=== PATIENT | female | born 1995 | race Two or more races ===

== ENCOUNTER 2016-12-24 22:17 | Emergency (ER) | payer MEDICAID ==
[~2016-12-24] VITALS: Ht 157.5 cm; Wt 45.6 kg
[2016-12-24 22:43] VITALS: BP 102/70
[2016-12-24 23:08] LABS: Basophils # (auto) 0.1 uL; Basophils % (auto) 0.9 % (0.0-2.0); Eosinophils # (auto) 0 uL; Eosinophils % (auto) 0.4 % (0.0-7.0); Hemoglobin 12.9 g/dL (12.2-16.2); Lymphocytes # (auto) 1.8 uL; Lymphocytes % (auto) 15.8 % (10.0-50.0); Mean Corpuscular Hgb Conc. 32.1 g/dL (32.0-36.0); Mean Corpuscular Volume 96.3 fL (80.0-100.0); Mean Platelet Volume 7.7 fL (7.4-10.4); Monocytes # (auto) 0.6 uL; Monocytes % (auto) 5.5 % (0.0-12.0); Neutrophils # (auto) 8.6 uL; Neutrophils % (auto) 77.4 % (37.0-80.0); Platelet Count (auto) 324 10^3/uL (140-450); White Blood Cell 11.1 10^3/uL (4.4-10.8)
[2016-12-24 23:25] LABS: Albumin 3.6 g/dL (3.4-5.0); BUN/Creatinine Ratio 15.4; Calcium 8.5 mg/dL (8.5-10.1); Potassium 3.2 mmol/L (3.5-5.1)
[2016-12-24 23:27] LABS: Bilirubin, Total 0.8 mg/dL (0.2-1.0); Total Protein 7.3 g/dL (6.4-8.2)
[2016-12-24 23:34] LABS: Urine Bilirubin Negative (Negative); Urine Blood Negative /uL (Negative); Urine Color Yellow (Yellow); Urine Glucose Normal (Normal); Urine Ketone TRACE (Negative); Urine Mucus FEW (None Seen); Urine Nitrite Negative (Negative); Urine RBC 1 /hpf (0 - 4); Urine Squamous Epithelial Cell FEW /hpf (<5); Urine Urobilinogen Normal (Negative); Urine pH 6.5 (5.0-8.0)
== END 2016-12-25 04:18 | disposition left against medical advice (07) ==
LOC: ER 22:21
DX: R10.9 Unspecified abdominal pain (principal); M54.9 Dorsalgia, unspecified; Z53.21 Procedure and treatment not carried out due to patient leaving prior to being seen by health care provider
CPT/HCPCS: 36415; 80053; 81001; 84702; 85025

== ENCOUNTER 2021-02-23 19:34 | Emergency (ER) | payer MEDICAID ==
[~2021-02-23] VITALS: Ht 157.5 cm; Wt 44.0 kg
[2021-02-23 20:10] LABS: Basophils # (auto) 0.1 10 ^3/uL (0-0.2); Basophils % (auto) 0.8 % (0.0-2.0); Eosinophils # (auto) 0 10 ^3/uL (0-0.8); Eosinophils % (auto) 0.2 % (0.0-7.0); Hematocrit 42.2 % (36.0-46.0); Hemoglobin 14.7 g/dL (12.2-16.2); Lymphocytes # (auto) 1.8 10 ^3/uL (0.4-5.4); Lymphocytes % (auto) 20.1 % (10.0-50.0); Mean Corpuscular Hemoglobin 32.8 pg (28.0-32.0); Mean Corpuscular Hgb Conc. 34.8 g/dL (32.0-36.0); Mean Corpuscular Volume 94.2 fL (80.0-100.0); Monocytes # (auto) 0.7 10 ^3/uL (0-1.3); Monocytes % (auto) 7.7 % (0.0-12.0); Neutrophils # (auto) 6.4 10 ^3/uL (1.6-8.6); Neutrophils % (auto) 71.2 % (37.0-80.0); Nucleated Red Blood Cells % 0.1 %; Platelet Count (auto) 316 10^3/uL (140-450); Red Blood Cells 4.48 10^6/uL (4.0-5.20); Red Cell Distribution Width 12.4 % (11.8-14.3)
[2021-02-23 20:23] LABS: Urine Bacteria FEW /hpf (None Seen); Urine Blood 2+ /uL (Negative); Urine Hyaline Cast FEW /lpf (0 - 2); Urine Mucus FEW (None Seen); Urine Specific Gravity 1.013 (1.001-1.035); Urine WBC 516 /hpf (0 - 5); Urine WBC Clumps PRESENT /hpf (None Seen)
[2021-02-23 20:30] LABS: Albumin 4.2 g/dL (3.4-5.0); Calcium 9.7 mg/dL (8.5-10.1); Potassium 4.1 mmol/L (3.5-5.1)
[2021-02-23 20:35] LABS: BUN/Creatinine Ratio 9.9; Bilirubin, Total 1.4 mg/dL (0.2-1.0); Total Protein 8.5 g/dL (6.4-8.2)
[2021-02-23] MEDS ORDERED: KETOROLAC TROMETH 60MG/2ML VIAL IM ONE (22:00)
[2021-02-23] MEDS ORDERED: cefTRIAXone SOD 1,000 MG VL IM ONE (22:00)
[2021-02-23 22:05] VITALS: BP 92/62
[2021-02-23] MEDS ORDERED: LIDOCAINE 1% HCL (LOCAL ANESTH.) INJ 20ML MDV ONE (22:15)
[2021-02-23] MEDS ORDERED: LIDOCAINE 1% HCL (LOCAL ANESTH.) INJ 20ML MDV IJ ONE (22:45)
== END 2021-02-23 21:58 | disposition home or self-care (01) ==
LOC: ER 19:34
DX: N39.0 Urinary tract infection, site not specified (principal); J45.909 Unspecified asthma, uncomplicated
CPT/HCPCS: 36415; 74176; 80053; 81001; 82150; 83690; 84702; 85025; 87086; 96372; 99284; J0696; J1885; J2001; 87088; 87186; J7042

== ENCOUNTER 2024-08-25 03:38 | Emergency (ER) | payer MEDICAID ==
[~2024-08-25] VITALS: Ht 157.5 cm; Wt 49.6 kg
[2024-08-25 03:57] VITALS: BP 112/60; PULSE 100; RESP 20; TEMP 99.8; O2SAT 98
[2024-08-25] MEDS ORDERED: IBUP-1456 PO (05:10)
[2024-08-25] MEDS ORDERED: OSEL75CA5 PO (05:10)
[2024-08-25] MEDS: IBUPROFEN 800 MG TAB PO ONE (05:15)
[2024-08-25] MEDS ORDERED: NITR-87 PO (22:38)
[2024-08-25] MEDS ORDERED: ZOFR4T PO (22:38)
[2024-08-25] MEDS ORDERED: IBUP-1455 PO (22:38)
== END 2024-08-25 05:47 | disposition home or self-care (01) ==
LOC: ER 03:38
DX: J11.1 Influenza due to unidentified influenza virus with other respiratory manifestations (principal); J45.909 Unspecified asthma, uncomplicated; F15.90 Other stimulant use, unspecified, uncomplicated

== ENCOUNTER 2024-08-25 18:12 | Emergency (ER) | payer MEDICAID ==
[~2024-08-25] VITALS: Ht 157.5 cm; Wt 79.9 kg
[~2024-08-25 18:12] MED LIST: IBUP-1456 PO; OSEL75CA5 PO
[2024-08-25 20:28] VITALS: BP 107/59; PULSE 111; RESP 16; O2SAT 98
[2024-08-25] MEDS: ONDANSETRON HCL 4 MG/2 ML VIAL IM ONE (20:51)
[2024-08-25] MEDS: ACETAMINOPHEN 500 MG TAB PO ONE (20:54)
[2024-08-25 21:26] LABS: COVID19 ANTIGEN SOFIA FIA NEGATIVE (NEGATIVE); Rapid Influenza A Negative (Negative); Rapid Influenza B Negative (Negative)
[2024-08-25 21:29] LABS: Urine Bacteria FEW /hpf (None Seen); Urine Blood 1+ /uL (Negative); Urine Clarity Turbid (Clear); Urine Color Yellow (Yellow); Urine Mucus FEW (None Seen); Urine Protein, UAD 1+ (Negative); Urine Specific Gravity 1.021 (1.001-1.035); Urine Urobilinogen 6 mg/dL (Negative); Urine WBC 11 /hpf (0 - 5)
[2024-08-25 21:30] VITALS: TEMP 98.9
[2024-08-25] MEDS ORDERED: IBUP-1455 PO (22:38)
[2024-08-25] MEDS ORDERED: ZOFR4T PO (22:38)
[2024-08-25] MEDS ORDERED: NITR-87 PO (22:38)
[2024-08-26] MEDS: PENICILLIN G BENZ 1,200,000 UNITS/2 ML SYRG IM ONE (00:02)
[2024-08-26] MEDS: NITROFURANTOIN 100 mg CAP PO ONE (00:12)
== END 2024-08-26 00:13 | disposition home or self-care (01) ==
LOC: ER 18:12
DX: J02.0 Streptococcal pharyngitis (principal); N39.0 Urinary tract infection, site not specified; J45.909 Unspecified asthma, uncomplicated; F15.90 Other stimulant use, unspecified, uncomplicated; Z79.1 Long term (current) use of non-steroidal anti-inflammatories (NSAID); Z79.899 Other long term (current) drug therapy; Z20.822 Contact with and (suspected) exposure to COVID-19
CPT/HCPCS: 36415; 81001; 87426; 87804; 96372; 99284; J0561; J2405

== ENCOUNTER 2025-07-03 20:40 | Emergency (ER) | payer MEDICAID ==
[~2025-07-03] VITALS: Ht 157.5 cm; Wt 47.6 kg
[~2025-07-03 20:40] MED LIST changes: +IBUP-1455 PO; +NITR-87 PO; +ZOFR4T PO
[2025-07-03] MEDS: ONDANSETRON ODT 4 MG TAB PO ONE (21:44)
[2025-07-03 22:32] LABS: Urine Protein, UAD 1+ (Negative); Urine WBC Clumps PRESENT /hpf (None Seen)
[2025-07-03] MEDS: ACETAMINOPHEN 325 MG TAB PO ONE (22:35)
[2025-07-03] MEDS ORDERED: ZOFR4T PO (22:36)
[2025-07-03] MEDS ORDERED: ACET500T58 PO (22:36)
[2025-07-03] MEDS ORDERED: BACDST PO (22:36)
--- NOTE | 2025-07-03 22:37 | ED.PDOC ---
History of Present Illness HPI Comments 29-year-old female presents to ER with complaints of fever x two days. Patient reports that he has been experiencing intermittent fever, cold sweats, chills and on/off frontal headache x2 days with associated nausea/vomiting x1 day. She she current pain an 8/10 localized to her forehead without radiation. Notes that she last took [id number] Tylenol at 10:00 a.m. prior to arrival to ER. Patient presents to ER low-grade fever on arrival at 99.9 F, ambulatory, with steady gait, in no distress. Denies cough, shortness of breath, dizziness, neck pain, known exposure to sick contacts, changes in urination/BM or any further symptoms/complaints Chief Complaint: Flu like Time Seen by MD: 20:48 Primary Care Provider: UNKNOWN Reviewed Notes: Nurses Notes, Medications, Allergies Information Source: Patient Mode of Arrival: Ambulatory Past Medical History PAST MEDICAL HISTORY: Asthma Surgical History: Tubal Ligation Family History Family History: Unknown Social History Smoker: Non-Smoker Alcohol: Denies ETOH Use Drugs: Denies Drug Use Lives In: Home Constitutional: See HPI EENTM: No Symptoms Reported Respiratory: No Symptoms Reported Cardiovascular: No Symptoms Reported Gastrointestinal: See HPI Genitourinary: No Symptoms Reported Neurological: See HPI Musculoskeletal: No Symptoms Reported Integumentary: No Symptoms Reported Allergic/Immunocompromised: others (DENIES) Hematologic/Lymphatic: No Symptoms Reported Endocrine: No Symptoms Reported Psychiatric: No symptoms Reported Physical Exam General Appearance: No Apparent Distress, Normal HEENT: Normal ENT Inspection, PERRL/EOMI, Pharynx Normal, TMs Normal Neck: Full Range of Motion, Non-Tender, Normal Respiratory: Chest Non-Tender, Lungs Clear, No Accessory Muscle Use, No Respiratory Distress, Normal Breath Sounds Cardiovascular: No Murmur, No Gallop, Regular Rate/Rhythm Breast Exam: Deferred Gastrointestinal: Non Tender, No Pulsatile Mass, Soft Genitalia: Deferred Pelvic: Deferred Rectal: Deferred Extremities: Normal capillary refill, Normal range of motion Neurologic: Alert, 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 Was a procedure done?: No Sedation Sedation?: No Fever Differential Dx Differential Diagnosis: Pneumonia, Sepsis, Pharyngitis, Other (COVID-19, INFLUENZA) X-Ray, Labs, Meds, VS Vital Signs Date Time Temp Pulse Resp B/P (MAP) Pulse Ox O2 Delivery O2 Flow Rate FiO2 07/03/25 22:35 98.7 07/03/25 20:41 99.9 108 18 104/59 98 99.9 Lab Test 07/03/25 21:41 07/03/25 21:17 Range/Units Influenza Type A Antigen Negative Negative Influenza Type B Antigen Negative Negative Urine Color Colorless Yellow Urine Clarity Ex.turbid Clear Urine pH 6.5 5.0-9.0 Urine Specific [place] 1.019 1.001-1.035 Urine Protein 1+ H Negative Urine Ketones Negative Negative Urine Blood 1+ H Negative /uL Urine Nitrite Negative Negative Urine Bilirubin Negative Negative Urine Urobilinogen Normal Negative mg/dL Urine Leukocyte Esterase 3+ Negative /uL Urine RBC 19 0 - 4 /hpf Urine WBC Clumps Present None Seen /hpf Urine Microscopic WBC 693 H 0-5 /HPF Urine Squamous Epithelial Cells Few <5 /hpf Urine Bacteria Few H None Seen /hpf Urine Mucus Few None Seen Urine Glucose Normal Normal mg/dL Urine Test Negative Negative Current Medications Medications (Trade) Dose Ordered Sig/Sonam Route Start Time Stop Time Status Last Admin Acetaminophen (Tylenol Tablet) 650 mg ONCE ONCE PO 07/03/25 21:15 07/03/25 21:16 DC 07/03/25 22:35 Ondansetron HCl (Zofran Po) 4 mg ONCE ONCE PO 07/03/25 21:15 07/03/25 21:16 DC 07/03/25 21:44 SWAB RESULTS REVIEWED-NEGATIVE URINALYSIS REVIEWED-URINE LEUKOCYTE ESTERASE 3+, URINE BLOOD 1+, URINE NITRITES NEGATIVE URINE REVIEWED-NEGATIVE TYLENOL 650 MG P.O. ORDERED ZOFRAN 4 MG P.O. ORDERED PATIENT HAD IMPROVEMENT IN SYMPTOMS, TOLERATING P.O. INTAKE WELL AND NONTOXIC APPEARING/ IN NO DISTRESS PRIOR TO DISCHARGE DIET EDUCATION DISCUSSED ADVISED TO FOLLOW UP WITH PCP IN 1-2 DAYS PATIENT VERBALIZED UNDERSTANDING AND AGREEABLE WITH CURRENT PLAN OF CARE ADVISED TO RETURN TO ER IMMEDIATELY IF SYMPTOMS WORSEN Time of 1ST Reevaluation: 22:10 Reevaluation 1ST: N/A Patient Education/Counseling: Diagnosis, Treatment, Prognosis, Need For Follow Up Family Education/Counseling: No Family Present SEPSIS Sepsis Screen Date sepsis recognized/suspect: Jul 03, 2025 Time Sepsis recognized/suspect: 2044 Recent Procedure: No On Antibiotic Therapy: No Respiratory Rate >20: No Heart Rate >90: Yes Temp<36 C (96.8 F) or >38.3 C: No SBP <90 or MAP <65 mmHG: No New Acute Mental Status Change: No Is the patient on CPAP, BIPAP,: No Physician Orders Ceftriaxone Sodium (Rocephin) (07/03/25 22:45) Vital Signs Date Time Temp Pulse Resp B/P (MAP) Pulse Ox O2 Delivery O2 Flow Rate FiO2 07/03/25 22:35 98.7 07/03/25 20:41 99.9 108 18 104/59 98 99.9 Medications Medications Dose Ordered Sig/Sonam Route Start Time Stop Time Status Last Admin Dose Admin Acetaminophen 650 mg ONCE ONCE PO 07/03/25 21:15 07/03/25 21:16 DC 07/03/25 22:35 Ondansetron HCl 4 mg ONCE ONCE PO 07/03/25 21:15 07/03/25 21:16 DC 07/03/25 21:44 Departure 1 Departure Time of Disposition: 22:32 Impression: Primary Impression: UTI (urinary tract infection) Qualified Codes: N30.01 - Acute cystitis with hematuria Disposition: HOME / SELF CARE / HOMELESS Condition: Stable e-Prescriptions Acetaminophen (Acetaminophen) 500 Mg Tab 500 MG PO Q4HPRN, #30 TAB 0 Refills Prov: ERIN RAMACHANDRAN 07/03/25 Ondansetron Odt 4MG Tab (ZOFRAN PO) 4 Mg Tb 4 MG PO Q8HPRN, #14 TAB 0 Refills ODT TAB-DISSOLVE IN MOUTH, THEN SWALLOW Prov: ERIN RAMACHANDRAN 07/03/25 Sulfamethoxazole W/Trimethopri (Bactrim Ds Tablet) 1 Tab Tb 1 TAB PO BID for 7 Days, #14 TAB 0 Refills Prov: ERIN RAMACHANDRAN 07/03/25 Discharged With: Friend Critical Care Note Critical Care Time?: No Stability Stability form required: No Heart Score Heart Score: Heart Score Response (Comments) Value History N/A 0 EKG N/A 0 Age N/A 0 Risk Factors N/A 0 Troponin N/A 0 Total 0 ERIN RAMACHANDRAN Jul 03, 2025 22:37
[2025-07-03] MEDS: cefTRIAXone SOD 1,000 MG VL IM ONE (22:41)
[2025-07-03] MEDS: LIDOCAINE 1% HCL (LOCAL ANESTH.) INJ 20ML MDV ONE (22:46)
[2025-07-03 22:48] VITALS: BP 112/57; PULSE 101; RESP 18; TEMP 98.7; O2SAT 100
== END 2025-07-03 23:28 | disposition home or self-care (01) ==
LOC: ER 20:40
DX: N39.0 Urinary tract infection, site not specified (principal); J45.909 Unspecified asthma, uncomplicated; Z98.51 Tubal ligation status
CPT/HCPCS: 81001; 81025; 87804; 96372; 99283; J0696; J2003; Q0162